=== PATIENT | female | born 1935 | race Caucasian/White ===

== ENCOUNTER → 2018-01-20 | Outpatient (CLI) | payer MEDICARE | END | disposition home or self-care (01) | LOC: LAB SHORT 09:54 → PLD 09:54 | DX: D48.5 Neoplasm of uncertain behavior of skin (principal) | CPT/HCPCS: 88305 ==

== ENCOUNTER → 2018-04-28 | Outpatient (CLI) | payer MEDICARE | END | disposition home or self-care (01) | LOC: PLD 08:22 → LAB SHORT 08:22 → EDSTATUS 09:46 | DX: D48.5 Neoplasm of uncertain behavior of skin (principal) | CPT/HCPCS: 88305 ==

== ENCOUNTER → 2018-07-20 | Outpatient (CLI) | payer MEDICARE | END | disposition home or self-care (01) | LOC: PLD 10:47 → LAB SHORT 10:47 | DX: C44.729 Squamous cell carcinoma of skin of left lower limb, including hip (principal) | CPT/HCPCS: 88305 ==

== ENCOUNTER → 2019-07-27 | Outpatient (CLI) | payer MEDICARE | END | disposition home or self-care (01) | LOC: OLS 11:41 → LAB SHORT 11:41 | DX: D48.5 Neoplasm of uncertain behavior of skin (principal) | CPT/HCPCS: 88305 ==

== ENCOUNTER → 2020-11-20 | Outpatient (CLI) | payer MEDICARE | LOC: LAB SHORT 09:10 → LAB 09:10 | DX: D48.5 Neoplasm of uncertain behavior of skin (principal) | CPT/HCPCS: 88305 ==

== ENCOUNTER 2022-04-14 00:42 | Day surgery (SDC) | payer MEDICARE | END 2022-04-14 23:56 | disposition home or self-care (01) | LOC: WOUND 00:42 | DX: L89.103 Pressure ulcer of unspecified part of back, stage 3 (principal); M40.209 Unspecified kyphosis, site unspecified; J45.909 Unspecified asthma, uncomplicated | CPT/HCPCS: A9270; G0463 ==

== ENCOUNTER 2022-04-21 12:34 | Day surgery (SDC) | payer MEDICARE | END 2022-04-21 23:58 | disposition home or self-care (01) | LOC: WOUND 12:34 | DX: L89.109 Pressure ulcer of unspecified part of back, unspecified stage (principal); M40.209 Unspecified kyphosis, site unspecified | CPT/HCPCS: A9270; G0463 ==

== ENCOUNTER 2022-04-28 02:36 | Day surgery (SDC) | payer MEDICARE | END 2022-04-28 23:34 | disposition home or self-care (01) | LOC: WOUND 02:36 | DX: L89.100 Pressure ulcer of unspecified part of back, unstageable (principal); S81.812A Laceration without foreign body, left lower leg, initial encounter; X58.XXXA Exposure to other specified factors, initial encounter | CPT/HCPCS: A9270; G0463 ==

== ENCOUNTER 2022-05-12 00:39 | Day surgery (SDC) | payer MEDICARE ==
[2022-05-13] MEDS ORDERED: TIZANIDINE HCL212 PO (16:52)
[2022-05-13] MEDS ORDERED: GABAPENTIN600 MG PO (16:52)
[2022-05-13] MEDS ORDERED: LAMOTRIGINE100 M1 PO (16:52)
[2022-05-13] MEDS ORDERED: BUPRENORPHINE HC8 MG SL (16:52)
[2022-05-13] MEDS ORDERED: PRAMIPEXOLE D0.25 M1 PO (16:53)
[2022-05-13] MEDS ORDERED: OMEP20ER (16:53)
[2022-05-13] MEDS ORDERED: CELE100 PO (16:53)
[2022-05-13] MEDS ORDERED: DULOXETINE HCL60 M1 PO (16:53)
== END 2022-05-12 23:55 | disposition home or self-care (01) ==
LOC: WOUND 00:39
DX: L89.100 Pressure ulcer of unspecified part of back, unstageable (principal); S81.812A Laceration without foreign body, left lower leg, initial encounter; X58.XXXA Exposure to other specified factors, initial encounter
CPT/HCPCS: A9270; G0463

== ENCOUNTER 2022-05-13 09:58 | Inpatient (IN) | payer MEDICARE ==
[~2022-05-13] VITALS: Ht 147.3 cm; Wt 54.4 kg
[2022-05-13 11:27] LABS: BASOPHILS ABSOLUTE AUTO 0.04 K/mm3 (0.00-0.23); BASOPHILS PERCENT AUTO 1 % (0-2); EOSINOPHILS ABSOLUTE AUTO 0.03 K/mm3 (0.00-0.68); EOSINOPHILS PERCENT AUTO 1 % (0-6); Hematocrit 21.7 % (33.0-51.0); Hemoglobin 6.7 g/dL (11.5-16.0); IMMATURE GRAN ABSOLUTE AUTO 0.01 K/mm3 (0.00-0.10); IMMATURE GRAN PERCENT AUTO 0 % (0-1); LYMPHOCYTES ABSOLUTE AUTO 0.79 K/mm3 (0.84-5.20); LYMPHOCYTES PERCENT AUTO 17 % (21-46); MONOCYTES ABSOLUTE AUTO 0.35 K/mm3 (0.16-1.47); MONOCYTES PERCENT AUTO 8 % (4-13); Mean Corpuscular HGB 32.1 pg (26.0-34.0); Mean Corpuscular HGB Conc 30.9 g/dL (31.5-36.5); Mean Corpuscular Volume 104 fL (80-100); Mean Platelet Volume 9.8 fL (9.1-12.4); NEUTROPHILS ABSOLUTE AUTO 3.36 K/mm3 (1.96-9.15); NEUTROPHILS PERCENT AUTO 73 % (41-73); Platelet Count 433 K/mm3 (150-400); RDW Coefficient Variation 15.2 % (11.7-14.2); RDW Standard Deviation 52.2 fL (35.1-46.3); Red Blood Cell Count 2.09 M/mm3 (3.80-5.20); White Blood Cell Count 4.58 K/mm3 (4.00-11.30)
[2022-05-13 11:52] LABS: Albumin/Globulin Ratio 0.8 (0.8-1.8); Bilirubin, Total 0.3 mg/dL (0.1-1.0); Bun/Creatinine Ratio 16.1 (12.0-20.0); Calcium, Blood 9.6 mg/dL (8.5-10.1); Creatinine, Blood 0.81 mg/dL (0.40-1.00); Globulin, Blood 3.6 g/dL (2.2-4.0); Percent Saturation 6.1 % (15.0-50.0); Potassium, Blood 3.8 mmol/L (3.5-5.5); Total Protein, Blood 6.6 g/dL (6.4-8.2)
[2022-05-13] MEDS ORDERED: LAMOTRIGINE100 M1 PO (16:52)
[2022-05-13] MEDS ORDERED: TIZANIDINE HCL212 PO (16:52)
[2022-05-13] MEDS ORDERED: GABAPENTIN600 MG PO (16:52)
[2022-05-13] MEDS ORDERED: BUPRENORPHINE HC8 MG SL (16:52)
[2022-05-13] MEDS ORDERED: CELE100 PO (16:53)
[2022-05-13] MEDS ORDERED: OMEP20ER (16:53)
[2022-05-13] MEDS ORDERED: PRAMIPEXOLE D0.25 M1 PO (16:53)
[2022-05-13] MEDS ORDERED: DULOXETINE HCL60 M1 PO (16:53)
[2022-05-13 18:23] LABS: Hematocrit 25.4 % (33.0-51.0); Hemoglobin 8.1 g/dL (11.5-16.0)
[2022-05-13 21:36] LABS: Hematocrit 24.7 % (33.0-51.0)
[2022-05-14 02:42] LABS: BASOPHILS ABSOLUTE AUTO 0.04 K/mm3 (0.00-0.23); BASOPHILS PERCENT AUTO 1 % (0-2); EOSINOPHILS ABSOLUTE AUTO 0.06 K/mm3 (0.00-0.68); EOSINOPHILS PERCENT AUTO 1 % (0-6); Hematocrit 25.3 % (33.0-51.0); Hemoglobin 7.9 g/dL (11.5-16.0); IMMATURE GRAN ABSOLUTE AUTO 0.02 K/mm3 (0.00-0.10); IMMATURE GRAN PERCENT AUTO 0 % (0-1); LYMPHOCYTES ABSOLUTE AUTO 0.82 K/mm3 (0.84-5.20); LYMPHOCYTES PERCENT AUTO 18 % (21-46); MONOCYTES ABSOLUTE AUTO 0.47 K/mm3 (0.16-1.47); MONOCYTES PERCENT AUTO 10 % (4-13); Mean Corpuscular HGB 30.7 pg (26.0-34.0); Mean Corpuscular HGB Conc 31.2 g/dL (31.5-36.5); Mean Corpuscular Volume 98 fL (80-100); Mean Platelet Volume 9.3 fL (9.1-12.4); NEUTROPHILS ABSOLUTE AUTO 3.24 K/mm3 (1.96-9.15); NEUTROPHILS PERCENT AUTO 70 % (41-73); Platelet Count 372 K/mm3 (150-400); RDW Coefficient Variation 17.5 % (11.7-14.2); RDW Standard Deviation 59.1 fL (35.1-46.3); Red Blood Cell Count 2.57 M/mm3 (3.80-5.20); White Blood Cell Count 4.65 K/mm3 (4.00-11.30)
[2022-05-14] MEDS ORDERED: BUPRENORPHINE HC8 MG SL (04:34)
[2022-05-14] MEDS ORDERED: NEURONTIN300 MG PO (04:37)
[2022-05-14] MEDS ORDERED: GABA300 PO (04:38)
[2022-05-14] MEDS ORDERED: Acetaminophen650 M1 PO (04:40)
[2022-05-14] MEDS ORDERED: OYSTER SHELL 51 EAC2 PO (04:42)
[2022-05-14] MEDS ORDERED: C COMPLEX1000 M1 PO (04:42)
[2022-05-14] MEDS ORDERED: B-121000 MC3 PO (04:43)
[2022-05-14] MEDS ORDERED: D-MANNOSE PO (04:45)
[2022-05-14] MEDS ORDERED: PROLIA60 MG/1 ML SC (04:46)
[2022-05-14] MEDS ORDERED: DULO60 PO (04:47)
[2022-05-14] MEDS ORDERED: CIDAFLEX TABLE1 EAC1 PO (04:48)
[2022-05-14] MEDS ORDERED: MELATONIN5 M1 PO (04:51)
[2022-05-14] MEDS ORDERED: LAMO100 PO (04:51)
[2022-05-14] MEDS ORDERED: MAGNESIUM OXID500 MG PO (04:51)
[2022-05-14] MEDS ORDERED: MIRALAX17 GM PO (04:52)
[2022-05-14] MEDS ORDERED: PRAMIPEXOLE D0.25 M1 PO (04:54)
[2022-05-14] MEDS ORDERED: PRILOSEC OTC20 MG PO (04:55)
[2022-05-14] MEDS ORDERED: Prochlorperazin10 MG PO (04:56)
[2022-05-14] MEDS ORDERED: SYSTANE BALANCE10 ML BOTHEYES (04:57)
[2022-05-14] MEDS ORDERED: AQUORAL10 ML MT (04:58)
[2022-05-14] MEDS ORDERED: TIZANIDINE HCL2 M1 PO (05:02)
--- NOTE | 2022-05-14 05:57 | NUR ---
SHIFT SUMMARY 86 YR F ADMITTED ON 05/13 22 FOR ACUTE BLOOD LOSS ANEMIA. DNR. PT WAS GIVEN 1 UNIT OF PRBC IN ED BEFORE BEING ADMITTED TO THIS UNIT. SHE IS PLEASANT AND COOPERATIVE WITH CARE. SMALL WOUND ON UPPER MIDDLE BACK WAS PHOTOGRAPHED AND PUT IN CHART. SHE PREFERS WALKING TO THE BATHROMM VS USING THE BEDSIDE COMMODE. SHE IS A STAND BY ASSIST BUT IS STEADY ON HER FEET. NPO AFTER MIDNIGHT DUE TO GI CONSULTATION TODAY. PT IS HOPING TO DISCHARGE HOME TODAY.
--- NOTE | 2022-05-14 09:43 | NUR ---
AMA PT INSISTED ON LEAVING AMA. THE PT SIGNED THE AMA FORM. PTS WAS FULLY DRESSED AND HERE TO PICK THE PATIENT UP. A CALL WAS MADE TO DR. SARAH Allan3 THE WAS UNABLE TO COME TO THE PATIENTS ROOM BEFORE SHE LEFT. THE PT WAS TRANSFERED VIA WHEELCHAIR ACCOMPANIED BY HER AND THE PURCHASE ANALYST
== END 2022-05-14 09:31 | disposition left against medical advice (07) | DRG 812 ==
LOC: ER 09:58 → MEDS 17:59
PROVIDERS: Physician Assistant; ADMIT Internal Medicine
PROC: 30233N1 Transfusion of Nonautologous Red Blood Cells into Peripheral Vein, Percutaneous Approach (ICD-10-PCS; principal; 2022-05-13)
DX: D62 Acute posthemorrhagic anemia (principal); E44.0 Moderate protein-calorie malnutrition; F11.20 Opioid dependence, uncomplicated; G89.4 Chronic pain syndrome; Z66 Do not resuscitate; M81.0 Age-related osteoporosis without current pathological fracture; M48.02 Spinal stenosis, cervical region; F41.9 Anxiety disorder, unspecified; R29.6 Repeated falls; F32.A Depression, unspecified; G47.9 Sleep disorder, unspecified; G25.81 Restless legs syndrome; Z79.899 Other long term (current) drug therapy; Z86.69 Personal history of other diseases of the nervous system and sense organs; Z79.1 Long term (current) use of non-steroidal anti-inflammatories (NSAID); Z98.890 Other specified postprocedural states; Z87.828 Personal history of other (healed) physical injury and trauma; Z68.25 Body mass index [BMI] 25.0-25.9, adult; Z53.29 Procedure and treatment not carried out because of patient's decision for other reasons
CPT/HCPCS: 36415; 36430; 80053; 82728; 83540; 83550; 85014; 85018; 85025; 86850; 86900; 86901; 86923; 96374; 99285-25; A9270; C9113; J1170; J2916; J7030; P9016

== ENCOUNTER 2022-05-26 05:38 | Day surgery (SDC) | payer MEDICARE ==
[~2022-05-26 05:38] MED LIST: AQUORAL10 ML MT; Acetaminophen650 M1 PO; B-121000 MC3 PO; BUPRENORPHINE HC8 MG SL; C COMPLEX1000 M1 PO; CELE100 PO; CIDAFLEX TABLE1 EAC1 PO; D-MANNOSE PO; DULO60 PO; DULOXETINE HCL60 M1 PO; GABA300 PO; GABAPENTIN600 MG PO; LAMO100 PO; LAMOTRIGINE100 M1 PO; MAGNESIUM OXID500 MG PO; MELATONIN5 M1 PO; MIRALAX17 GM PO; NEURONTIN300 MG PO; OMEP20ER; OYSTER SHELL 51 EAC2 PO; PRAMIPEXOLE D0.25 M1 PO; PRILOSEC OTC20 MG PO; PROLIA60 MG/1 ML SC; Prochlorperazin10 MG PO; SYSTANE BALANCE10 ML BOTHEYES; TIZANIDINE HCL2 M1 PO; TIZANIDINE HCL212 PO
== END 2022-05-26 23:32 | disposition home or self-care (01) ==
LOC: WOUND 05:38
DX: L89.100 Pressure ulcer of unspecified part of back, unstageable (principal); S81.812A Laceration without foreign body, left lower leg, initial encounter; X58.XXXA Exposure to other specified factors, initial encounter
CPT/HCPCS: A9270; G0463

== ENCOUNTER 2022-06-09 01:37 | Day surgery (SDC) | payer MEDICARE | END 2022-06-09 23:55 | disposition home or self-care (01) | LOC: WOUND 01:37 | DX: L89.890 Pressure ulcer of other site, unstageable (principal) | CPT/HCPCS: A9270; G0463 ==

== ENCOUNTER 2022-06-27 02:25 | Day surgery (SDC) | payer MEDICARE | END 2022-06-27 23:54 | disposition home or self-care (01) | LOC: WOUND 02:25 | DX: L89.100 Pressure ulcer of unspecified part of back, unstageable (principal) | CPT/HCPCS: A9270 ==

== ENCOUNTER 2022-07-21 00:32 | Day surgery (SDC) | payer MEDICARE | END 2022-07-21 23:40 | disposition home or self-care (01) | LOC: WOUND 00:32 | DX: L89.100 Pressure ulcer of unspecified part of back, unstageable (principal); M40.209 Unspecified kyphosis, site unspecified | CPT/HCPCS: A9270 ==

== ENCOUNTER 2022-07-28 03:57 | Day surgery (SDC) | payer MEDICARE | END 2022-07-28 23:13 | disposition home or self-care (01) | LOC: WOUND 03:57 | DX: L89.100 Pressure ulcer of unspecified part of back, unstageable (principal); M40.209 Unspecified kyphosis, site unspecified | CPT/HCPCS: A9270; G0463 ==

== ENCOUNTER 2022-08-11 01:53 | Day surgery (SDC) | payer MEDICARE | END 2022-08-11 23:34 | disposition home or self-care (01) | LOC: WOUND 01:53 | DX: L89.100 Pressure ulcer of unspecified part of back, unstageable (principal); M40.209 Unspecified kyphosis, site unspecified | CPT/HCPCS: A9270 ==

== ENCOUNTER 2022-08-18 02:41 | Day surgery (SDC) | payer MEDICARE | END 2022-08-18 23:29 | disposition home or self-care (01) | LOC: WOUND 02:41 | DX: L98.422 Non-pressure chronic ulcer of back with fat layer exposed (principal) | CPT/HCPCS: A9270; G0463 ==

== ENCOUNTER 2022-08-25 02:40 | Day surgery (SDC) | payer MEDICARE | END 2022-08-25 23:19 | disposition home or self-care (01) | LOC: WOUND 02:40 | DX: L89.100 Pressure ulcer of unspecified part of back, unstageable (principal) | CPT/HCPCS: A9270 ==

== ENCOUNTER 2022-09-08 02:57 | Day surgery (SDC) | payer MEDICARE | END 2022-09-08 23:41 | disposition home or self-care (01) | LOC: WOUND 02:57 | DX: L89.100 Pressure ulcer of unspecified part of back, unstageable (principal); M40.209 Unspecified kyphosis, site unspecified | CPT/HCPCS: A9270; G0463 ==

== ENCOUNTER 2022-09-15 01:39 | Day surgery (SDC) | payer MEDICARE | END 2022-09-15 23:40 | disposition home or self-care (01) | LOC: WOUND 01:39 | DX: L89.103 Pressure ulcer of unspecified part of back, stage 3 (principal) | CPT/HCPCS: A9270 ==

== ENCOUNTER 2022-09-22 01:55 | Day surgery (SDC) | payer MEDICARE | END 2022-09-22 23:33 | disposition home or self-care (01) | LOC: WOUND 01:55 | DX: L89.103 Pressure ulcer of unspecified part of back, stage 3 (principal) | CPT/HCPCS: A9270; G0463 ==

== ENCOUNTER 2022-09-29 01:26 | Day surgery (SDC) | payer MEDICARE | END 2022-09-29 23:39 | disposition home or self-care (01) | DX: L89.103 Pressure ulcer of unspecified part of back, stage 3 (principal) ==

== ENCOUNTER 2022-10-06 01:19 | Day surgery (SDC) | payer MEDICARE | END 2022-10-06 23:34 | disposition home or self-care (01) | LOC: WOUND 01:19 | DX: L89.103 Pressure ulcer of unspecified part of back, stage 3 (principal) | CPT/HCPCS: A9270; G0463 ==

== ENCOUNTER 2022-10-13 01:30 | Day surgery (SDC) | payer MEDICARE | END 2022-10-13 23:09 | disposition home or self-care (01) | LOC: WOUND 01:30 | DX: L89.103 Pressure ulcer of unspecified part of back, stage 3 (principal) | CPT/HCPCS: A9270; G0463 ==

== ENCOUNTER 2022-10-20 01:17 | Day surgery (SDC) | payer MEDICARE | END 2022-10-20 23:02 | disposition home or self-care (01) | LOC: WOUND 01:17 | DX: L89.103 Pressure ulcer of unspecified part of back, stage 3 (principal) | CPT/HCPCS: A9270; G0463 ==

== ENCOUNTER 2022-11-24 01:12 | Day surgery (SDC) | payer MEDICARE | END 2022-11-24 23:03 | disposition home or self-care (01) | LOC: WOUND 01:12 | DX: L89.103 Pressure ulcer of unspecified part of back, stage 3 (principal) | CPT/HCPCS: G0463 ==

== ENCOUNTER 2022-12-09 00:49 | Day surgery (SDC) | payer MEDICARE | END 2022-12-09 23:13 | disposition home or self-care (01) | LOC: WOUND 00:49 | DX: L89.893 Pressure ulcer of other site, stage 3 (principal) | CPT/HCPCS: A9270; G0463 ==

== ENCOUNTER 2023-03-23 01:30 | Day surgery (SDC) | payer MEDICARE | END 2023-03-23 23:00 | disposition home or self-care (01) | LOC: WOUND 01:30 | DX: L89.103 Pressure ulcer of unspecified part of back, stage 3 (principal) | CPT/HCPCS: A9270; G0463 ==

== ENCOUNTER 2023-06-07 18:39 | Observation (INO) | payer MEDICARE ==
[~2023-06-07] VITALS: Ht 147.3 cm; Wt 54.2 kg
[2023-06-07 19:11] LABS: BASOPHILS ABSOLUTE AUTO 0.04 K/mm3 (0.00-0.23); BASOPHILS PERCENT AUTO 1 % (0-2); EOSINOPHILS ABSOLUTE AUTO 0.15 K/mm3 (0.00-0.68); EOSINOPHILS PERCENT AUTO 2 % (0-6); Hematocrit 41.3 % (33.0-51.0); Hemoglobin 12.9 g/dL (11.5-16.0); IMMATURE GRAN ABSOLUTE AUTO 0.02 K/mm3 (0.00-0.10); IMMATURE GRAN PERCENT AUTO 0 % (0-1); LYMPHOCYTES ABSOLUTE AUTO 3.02 K/mm3 (0.84-5.20); LYMPHOCYTES PERCENT AUTO 35 % (21-46); MONOCYTES ABSOLUTE AUTO 0.67 K/mm3 (0.16-1.47); MONOCYTES PERCENT AUTO 8 % (4-13); Mean Corpuscular HGB 31.4 pg (26.0-34.0); Mean Corpuscular HGB Conc 31.2 g/dL (31.5-36.5); Mean Corpuscular Volume 101 fL (80-100); NEUTROPHILS ABSOLUTE AUTO 4.82 K/mm3 (1.96-9.15); NEUTROPHILS PERCENT AUTO 55 % (41-73); Platelet Count 237 K/mm3 (150-400); RDW Coefficient Variation 12.9 % (11.7-14.2); Red Blood Cell Count 4.11 M/mm3 (3.80-5.20); White Blood Cell Count 8.72 K/mm3 (4.00-11.30)
[2023-06-07 19:25] LABS: Albumin, Blood 3.5 g/dL (3.4-5.0); Albumin/Globulin Ratio 0.8 (0.8-1.8); Bilirubin, Total 0.4 mg/dL (0.1-1.0); Bun/Creatinine Ratio 19.7 (12.0-20.0); Calcium, Blood 8.6 mg/dL (8.5-10.1); Creatinine, Blood 0.66 mg/dL (0.40-1.00); Globulin, Blood 4.2 g/dL (2.2-4.0); Potassium, Blood 4.3 mmol/L (3.5-5.5); Total Protein, Blood 7.7 g/dL (6.4-8.2)
--- NOTE | 2023-06-07 23:51 | NUR ---
RECEIVED REPORT FROM PORFIRIO WARD RN.
--- NOTE | 2023-06-08 00:10 | NUR ---
PT ARRIVED TO 363 VIA GURNEY. PT TRANSFERRED SELF TO ROOM AND USED FWW TO AMBULATE TO THE BATHROOM. YELLOW SOCKS WERE PLACED ON PT'S FEET BEFORE PT WALKED TO THE BATHROOM ASSISTED BY LANDSCAPE DRAFTER. A/O. ABLE TO STATE NEEDS APPROPRIATELY. VSS. DENIES PAIN, AND SOB. NOTED SEVERE CURVATURE OF SPINE. PT HAS A HX OF SCOLIOSIS. MEPILEX BANDAGES ON PT'S BACK. PT GAVE VERBAL PERMISSION TO TAKE PICTURES OF BACK, LEGS AND FACE. WILL CONTINUE TO PROVIDE CARE THROUGHOUT SHIFT. CALL LT IN REACH.
[2023-06-08 00:29] VITALS: BP 127/66
--- NOTE | 2023-06-08 01:00 | NUR ---
MOUTH SWABS, AND CHAPSTICK GIVEN TO PT. PT IS NPO.
--- NOTE | 2023-06-08 01:45 | NUR ---
PT RESTING QUIETLY. RESP EVEN ON RA. CALL LT IN REACH.
--- NOTE | 2023-06-08 03:30 | NUR ---
PT CONTINUES TO REST QUIETLY. CALL LT IN REACH.
[2023-06-08 04:22] VITALS: BP 143/74
--- NOTE | 2023-06-08 04:42 | NUR ---
PT UP TO THE BATHROOM USING FWW WITHOUT DIFFICULTY. PT VOIDING. USING CALL LT APPROPRIATELY. VSS. WILL CONTINUE TO PROVIDE CARE. CALL LT IN REACH.
--- NOTE | 2023-06-08 04:43 | NUR ---
SHIFT SUMMARY: ED ADMIT. A/O X 4. PLEASANT AND COOPERATIVE. RESP EVEN ON RA. USES FWW TO AMBULATE IN RM TO BR. VOIDING WELL. RESTED WELL T/O SHIFT. CHOOSES TO LAY ON HER LEFT SIDE, STATES THAT'S HOW SHE SLEEPS AT HOME. DRESSING CHANGED TO BACK. RODS IN HER BACK D/T SCOLIOSIS. NPO FOR SWALLOW EVAL TODAY. OCCASIONAL NPC. RASPY VOICE FROM COUGHING, THIS HAS BEEN ONGOING FOR AT LEAST A MONTH. NO ACUTE CHANGES. PT STATES SHE FEELS BETTER. WILL CONTINUE TO PROVIDE CARE UNTIL SHIFT REPORT TO ONCOMING NURSE.
[2023-06-08] MEDS ORDERED: CELE100 PO (04:52)
[2023-06-08] MEDS ORDERED: MULVITA PO (05:00)
--- NOTE | 2023-06-08 06:23 | NUR ---
PT RESTING QUIETLY. CALL LT IN REACH.
[2023-06-08 06:29] LABS: BASOPHILS ABSOLUTE AUTO 0.03 K/mm3 (0.00-0.23); BASOPHILS PERCENT AUTO 1 % (0-2); EOSINOPHILS ABSOLUTE AUTO 0.07 K/mm3 (0.00-0.68); EOSINOPHILS PERCENT AUTO 1 % (0-6); Hemoglobin 11.8 g/dL (11.5-16.0); IMMATURE GRAN ABSOLUTE AUTO 0.01 K/mm3 (0.00-0.10); IMMATURE GRAN PERCENT AUTO 0 % (0-1); LYMPHOCYTES ABSOLUTE AUTO 1.12 K/mm3 (0.84-5.20); LYMPHOCYTES PERCENT AUTO 18 % (21-46); MONOCYTES ABSOLUTE AUTO 0.49 K/mm3 (0.16-1.47); MONOCYTES PERCENT AUTO 8 % (4-13); Mean Corpuscular HGB 31.6 pg (26.0-34.0); Mean Corpuscular HGB Conc 31.9 g/dL (31.5-36.5); Mean Corpuscular Volume 99 fL (80-100); Mean Platelet Volume 9.5 fL (9.1-12.4); NEUTROPHILS ABSOLUTE AUTO 4.37 K/mm3 (1.96-9.15); NEUTROPHILS PERCENT AUTO 72 % (41-73); Platelet Count 213 K/mm3 (150-400); RDW Standard Deviation 47.1 fL (35.1-46.3); Red Blood Cell Count 3.73 M/mm3 (3.80-5.20); White Blood Cell Count 6.09 K/mm3 (4.00-11.30)
[2023-06-08 06:48] LABS: Albumin, Blood 3.1 g/dL (3.4-5.0); Bilirubin, Total 0.3 mg/dL (0.1-1.0); Bun/Creatinine Ratio 15.3 (12.0-20.0); Calcium, Blood 8.4 mg/dL (8.5-10.1); Creatinine, Blood 0.65 mg/dL (0.40-1.00); Globulin, Blood 3.1 g/dL (2.2-4.0); Potassium, Blood 3.9 mmol/L (3.5-5.5); Total Protein, Blood 6.2 g/dL (6.4-8.2)
[2023-06-08 08:16] VITALS: BP 159/87
[2023-06-08] MEDS ORDERED: DRIZALMA SPRINK60 MG PO (14:15)
[2023-06-08] MEDS ORDERED: LANSOPRAZOLE SUSP PO (14:16)
--- NOTE | 2023-06-08 14:49 | NUR ---
PATIENT DISCHARGED TO [facility], ACCOMPANIED BY HER DAUGHTER. PT AND DAUGHTER VERBALIZED UNDERSTANDING OF D/C INSTRUCTIONS AND ASPIRATION PRECAUTIONS. IV SALINE LOCK REMOVED WITHOUT INCIDENT. OFF UNIT VIA W/C AT 1443. NO PERSONAL BELONGINGS LEFT BEHIND IN ROOM.
== END 2023-06-08 14:43 | disposition hospice, home (50) ==
LOC: ER 18:39 → MEDS 18:40 → ENPENDDIS 06-08 11:57 → MEDS 06-08 14:43
PROVIDERS: Emergency Medicine; Family Medicine; ADMIT Internal Medicine
DX: J69.0 Pneumonitis due to inhalation of food and vomit (principal); J96.01 Acute respiratory failure with hypoxia; M41.9 Scoliosis, unspecified; K59.09 Other constipation; G89.4 Chronic pain syndrome; Z72.0 Tobacco use
CPT/HCPCS: 36415; 71046; 80053; 85025; 92610; 99285-25; G0378